=== PATIENT | female | born 1950 | race Caucasian/White ===

== ENCOUNTER 2016-08-27 17:27 | Emergency (ER) | payer OTHER, MEDICARE ==
[~2016-08-27] VITALS: Ht 165.1 cm; Wt 104.3 kg
[~2016-08-27 17:27] MED LIST: CLX20 PO; LEVO150T48 PO; OXYC1TAB3 PO
[2016-08-27 18:02] VITALS: TEMP 37.1; Ht 165.1 cm; Wt 104.3 kg
[2016-08-27] MEDS ORDERED: SULFAMETHOXAZOLE/TRIMETHOPRIM DS 800/160MG TAB PO STA (19:25)
[2016-08-27] MEDS ORDERED: SULF800T23 PO (19:28)
[2016-08-27] MEDS ORDERED: DOXY100C76 PO (19:32)
[2016-08-27] MEDS ORDERED: SPIR50TA2 PO (19:32)
[2016-08-27] MEDS ORDERED: LEVO150T PO (19:32)
[2016-08-27] MEDS ORDERED: ACET-1256 PO (19:32)
[2016-08-27] MEDS ORDERED: LEVO175T PO (19:37)
[2016-08-27 19:45] VITALS: BP 154/93; PULSE 96; O2SAT 98
[2016-08-27] MEDS ORDERED: HYOS1TAB PO (23:13)
--- NOTE | 2016-08-28 00:56 | EMERGENCY ROOM VISIT NOTE ---
History Report prepared by John: Clay Sahu Under the Supervision of: Dr. Billy Pino M.D. First contact with patient: 19:13 Chief Complaint: WOUND INFECTION Stated Complaint: INFECTED CYST ON LF BREAST,SENT BY DR Churchill Triage Summary: "I think I have an infected cyst on my left breast. my doctor told me he thinks I should have antibiotics" History of Present Illness The patient is a 66 year old female who presents to the Emergency Room with complaints of worsening tenderness associated with a cyst on her left breast for the past week. The patient has had the cyst for two months, which is approximately quarter-sized. The cyst started to become red and tender this past week. She denies any fevers, sore throats, or vomiting. The patient's cat stepped on the area last night, which exacerbated the pain. The cat did not scratch the afflicted area. The patient's PCP is aware of the cyst. She had a mammogram in May which demonstrated a cyst on the left breast in the same area. She is currently on Doxycycline for rosacea. The patient is otherwise healthy and denies any history of diabetes. Source of History: patient Onset: one week ago Position: other (left breast) Quality: other (tenderness) Timing: worsening Associated Symptoms: No fevers, No sorethroat, No vomiting Review of Systems See HPI for pertinent positives & negatives. A total of 10 systems reviewed and were otherwise negative. Past Medical & Surgical Medical Problems: (1) Cyst of left breast (2) No known health problems Family History No pertinent family history Social History Smoking Status: Never Smoker Current/Historical Medications Scheduled Doxycycline Monohydrate (Monodox), 100 MG PO DAILY Hyoscyamine Sulfate (Levsin), 0.125 MG PO PRN Levothyroxine Sodium (Synthroid), 175 MCG PO DAILY Spironolactone (Aldactone), 50 MG PO DAILY Sulfa/Trimethoprim (Bactrim Ds 800MG/160MG), 1 TAB PO BID Scheduled PRN Acetaminophen (Tylenol), 1,000 MG PO TID PRN for Pain Allergies Coded Allergies: Miconazole (Verified Allergy, Unknown, 08/13/09) Uncoded Allergies: MONASTAT (Allergy, Unknown, 12/09/02) Physical Exam Vital Signs Date Time Temp Pulse Resp B/P Pulse Ox O2 Delivery O2 Flow Rate FiO2 08/27/16 19:45 96 20 154/93 98 08/27/16 18:02 37.1 99 18 120/82 99 Physical Exam Constitutional: Vital signs reviewed. Eyes: Pupils are equal round reactive to light. Conjunctiva are noninjected. ENT: Pharynx is clear without erythema or exudate. Mucous membranes are moist. Neck supple without meningeal signs. Respiratory: Clear to auscultation bilaterally. Breath sounds are equal bilaterally. Cardiovascular: Regular rate and rhythm. No rubs or gallops. GI: Soft, nondistended and nontender. Bowel sounds are present. Musculoskeletal: No peripheral edema. Integumentary: There is a quarter sized erythematous lesion to the medial superior left breast with an underlying cystic lesion, no induration, no nipple discharge, no left axillary lymphadenopathy. Neurological: The patient is awake and alert. No focal deficits. Psychiatric: Normal affect. Medical Decision & Procedures Medications Administered Medications (Trade) Dose Ordered Sig/Shun Route Start Time Stop Time Status Last Admin Dose Admin Trimethoprim/ Sulfamethoxazole (Septra Ds 800/ 160MG Tab) 1 tab NOW STAT PO 08/27/16 19:25 08/27/16 19:26 DC 08/27/16 19:44 1 TAB ED Course 1915: The patient was evaluated in room D2a. A complete history and physical exam was performed. 1924: Septra Ds 800/160 mg tab PO. 1929: I discussed derian's findings with her. She verbalized agreement of the treatment plan. She was discharged home. Medical Decision This is a 66-year-old female who presents with breast pain. Differential diagnosis includes cyst, cellulitis, mastitis, carcinoma, abscess. I did perform a limited focused review of portions of the patient's old chart on the electronic medical record. The patient has had no recent pertinent visits to this hospital. I did evaluate the patient as noted above. Patient is presenting with redness and tenderness to her left breast where she has a known cyst. She has had this is for months and it was seen on her mammogram previously. She does appear to have developed an infection surrounding it. I did not feel I&D was indicated as it is an infected cyst and would I clearly reaccumulate fluid. I did recommend antibiotic treatment and follow up with her doctor for further evaluation. The patient is currently on doxycycline 100 mg daily for her rosacea. She was told to increase this to 100 mg twice a day for 10 days and she was also given a prescription for Bactrim for 10 days. She was discharged in good condition. Impression Primary Impression: Infection of left breast Scribe Attestation The scribe's documentation has been prepared under my direct and personally reviewed by me in its entirety. I confirm that the note above accurately reflects all work, treatment, procedures, and medical decision making performed by me. Departure Information Dispostion Home / Self-Care Prescriptions Sulfa/Trimethoprim (Bactrim Ds 800MG/160MG) Tab 1 TAB PO BID, #19 TAB Prov: Billy Pino M.D. 08/27/16 Referrals No Doctor, Assigned (PCP) Forms HOME CARE DOCUMENTATION FORM, IMPORTANT VISIT INFORMATION, WORK / SCHOOL INSTRUCTIONS Patient Instructions My [facility] Additional Instructions You have been examined and treated today on an emergency basis only. This is not a substitute for, or an effort to provide, complete comprehensive medical care. It is impossible to recognize and treat all injuries or illnesses in a single emergency department visit. It is therefore important that you follow up closely with your physician for further evaluation and possible outpatient ultrasound. Call as soon as possible for an appointment. Return for worsening symptoms or if you develop fever, vomiting, or any other concerning symptoms.
[2017-02-14] MEDS ORDERED: SPIR50TA2 PO (13:57)
[2017-02-14] MEDS ORDERED: LEVO150T9 PO (13:57)
== END 2016-08-27 19:47 | disposition home or self-care (01) ==
LOC: C.EDB 17:29 → C.EDD 19:47
DX: N61.0 Mastitis without abscess (principal); N60.02 Solitary cyst of left breast; Z79.899 Other long term (current) drug therapy; Z88.8 Allergy status to other drugs, medicaments and biological substances

== ENCOUNTER → 2017-03-14 | Day surgery (SDC) | payer OTHER, MEDICARE ==
[2017-02-14 13:57] VITALS: Ht 165.1 cm; Wt 102.3 kg
[~2017-03-14] VITALS: Ht 165.1 cm; Wt 102.3 kg
[~2017-03-14] MED LIST changes: +500ML BSS 0.3ML EPI 1:1000PF IRRIG ONE; +ACET-1256 PO; +ACETAMINOPHEN 325 MG TAB PO PRN; +AMVISC PLUS 0.8ML SYRINGE INT OCU ONE; +ATROPINE SULFATE 0.1 MG/ML 5ML SYR IV PRN; +AcetaZOLAMIDE 250 MG TAB PO SCH; +BETAXOLOL HCL 0.25% OP SUSP PER DROP CHARGE OPR SCH; +BRIMONIDINE TART 0.2% OP SOLN PER DROP CHARGE ONE; +BSS FLUSH ONE; -CLX20 PO; +DOXY100C76 PO; +ENDOCOAT 0.85ML SYRINGE INT OCU ONE; +EpHEDrine SULFATE INJ 50 MG/ML AMP IV PRN; +EpINEphrine INJ 1MG/ML AMP 1 MG/ML AMP ONE; +LACTATED RINGER'S 1000ML 500 ML IV SCH; -LEVO150T48 PO; +LEVO150T9 PO; +LIDOCAINE 4% OP SOLN DROP CHARGE ONE; +LIDOCAINE 4% OP SOLN DROP CHARGE OPR SCH; +LIDOCAINE HCL 1% MPF 2 ML VIAL ONE; +MIDAZOLAM HCL 1 MG/ML 2ML VIAL ONE; +MIX: 4ML BSS 1ML EPI 1:1000 PF INSTIL ONE; +MOXIFLOXACIN OPH SOLN PER DROP CHARGE ONE; +OCUCOAT 1 ML SOLN IO ONE; -OXYC1TAB3 PO; +POVIDONE-IODINE OP SOLN 30 ML BTL ONE; +PROPARACAINE 0.5% OP SOLN PER DROP CHARGE OPR SCH; +SPIR50TA2 PO; +TOBRAMYCIN/DEXAMETHASONE OPH OINT PER APPLN CHARGE ONE
--- NOTE | 2017-03-14 06:52 | History & Physical Bridge - SC ---
H&P Re-Evaluation Bridge Note: I have examined the patient, reviewed the History & Physical and in the interval since the performance of the History & Physical I have noted the following changes of clinical significance: No changes noted
[2017-03-14] MEDS: PHENYLEPHRINE HCL 2.5% OP SOLN PER DROP CHARGE OPR SCH ×2 (06:58→07:04)
[2017-03-14] MEDS: TROPICAMIDE 1% OP SOLN PER DROP CHARGE OPR SCH ×2 (06:59→07:04)
[2017-03-14] MEDS: CYCLOPENTOLATE HCL 1% OP SOLN PER DROP CHARGE OPR SCH ×2 (07:00→07:05)
[2017-03-14] MEDS: MOXIFLOXACIN OPH SOLN PER DROP CHARGE OPR SCH ×2 (07:00→07:11)
--- NOTE | 2017-03-14 07:54 | Discharge Instructions-SurgCtr ---
Discharge Instructions Date of Service Mar 14, 2017. Visit Reason for Visit: Cataract Right Eye Discharge Discharge Diagnosis / Problem: lens implant right eye Discharge Goals Goal(s): Improve function Activity Recommendations Activity Limitations: resume your previous activity Lifting Limitations: no more than 10 pounds Exercise/Sports Limitations: gradually increase as tolerated May Resume Sexual Activity: when tolerated Shower/Bathe: tomorrow Driving or Machine Use: resume 1 day after discharge Anesthesia . Post Anesthesia Instructions: If you have had General Anesthesia or IV Sedation: * Do not drive today. * Resume driving when surgeon permits. * Do not make important decisions or sign legal documents today. * Call surgeon for: 1. Temperature elevations greater than 101 degrees F. 2. Uncontrollable pain. 3. Excessive bleeding. 4. Persistent nausea and vomiting. 5. Medication intolerance (nausea, vomiting or rash). * For nausea and vomiting use only clear liquids such as: tea, soda, bouillon until nausea subsides, then gradually increase diet as tolerated. * If you have any concerns or questions, call your surgeon's office. If physician is unavailable and it is an emergency, call 911 or go to the nearest emergency room. . Instructions / Follow-Up Instructions / Follow-Up ACTIVITY RECOMMENDATIONS: * Light activities. * Mild irritation and blurred vision are common for the first few days. * You may walk outside, read, watch television. * Redness around the white part of the eye is common. MEDICATIONS: Resume previous medications unless instructed otherwise by your surgeon. * Take white Diamox (Acetazolamide) tablet at 1 pm today. Start all eye drops at 1 pm today: * Eye drops (today and tomorrow): Prednisone - one drop in operative eye every 3 hours while awake Ofloxacin - one drop in operative eye every 3 hours while awake SPECIAL CARE INSTRUCTIONS: * Tape plastic shield over eye to sleep at night. Call your doctor at with any concerns or problems. FOLLOW UP VISIT: Follow-up with Dr Shannon at [place] office as scheduled. Diet Recommendations Home Diet: no limitations Procedures Procedures Performed: cataract extraction with lens implant Pending Studies Studies pending at discharge: no Medical Emergencies . Who to Call and When: Medical Emergencies: If at any time you feel your situation is an emergency, please call 911 immediately. . Non-Emergent Contact Non-Emergency issues call your: Inspector Filters Call Non-Emergent contact if: your pain is not controlled [phone] . . "Provider Documentation" section prepared by Clark Shannon. .
--- NOTE | 2017-03-14 07:56 | [facility] Operative Report ---
Operative Report Date of Service Mar 14, 2017. Operative Report 1. PREOPERATIVE DIAGNOSIS: Senile nuclear cataract, right eye. 2. POSTOPERATIVE DIAGNOSIS: Senile nuclear cataract, right eye. 3. PROCEDURE: Phacoemulsification of right cataract with posterior chamber lens implant, type [employer]ch [employer] Lomb, model MI60L, power +12.0 diopters. ANESTHESIA: Local standby. SURGEON: Dr. Shannon. COMPLICATIONS: None. OPERATING TIME: 10 minutes. 4. OPERATION AND FINDINGS: DESCRIPTION OF PROCEDURE: The right pupil was dilated. The anesthetic was administered using a topical technique. The right eye was prepped and draped. A speculum was placed. A clear corneal incision was formed. The chamber was filled with Amvisc Plus and Endocoat. Epinephrine solution was used. A paracentesis was placed. A capsulorrhexis was performed. The nucleus was hydrodissected. The lens was removed with phacoemulsification. Time was 3.47 seconds. The aspiration unit was used to remove the cortex. The capsule was filled with Amvisc Plus. The lens implant was folded and placed into the capsule. The incision was hydrated. The Amvisc was aspirated. The wound was secure. The chamber was deep. The pupil was round. Brimonidine, TobraDex ointment and Vigamox solution were placed. The speculum was removed. The patient was returned to the Recovery Room in stable condition. I attest to the content of the Intraoperative Record and any orders documented therein. Any exceptions are noted below. The scribe's documentation has been prepared in my presence, under my direction and personally reviewed by me in its entirety. I confirm that the note above accurately reflects all work, treatment, procedures, and medical decision making performed by me. I personally scribed for Clark Shannon M.D. ([email or web address]) on 03/14/17 at 07:56. Electronically submitted by Kylie Umana ([email or web address]).
[2017-03-14 07:58] VITALS: TEMP 37
--- NOTE | 2017-03-14 08:09 | Anesthesia Progress Nt - [facility] ---
Anesthesia Post Op Note Date & Time Mar 14, 2017 at 08:09 Vital Signs Pain Intensity: 0 Vital Signs Past 12 Hours Date Time Temp Pulse Resp B/P (MAP) Pulse Ox O2 Delivery O2 Flow Rate FiO2 03/14/17 06:44 37.0 87 20 128/80 (96) 97 Room Air Notes Mental Status: alert / awake / arousable, participated in evaluation Pt Amnestic to Procedure: Yes Nausea / Vomiting: adequately controlled Pain: adequately controlled Airway Patency, RR, SpO2: stable & adequate BP & HR: stable & adequate Hydration State: stable & adequate Anesthetic Complications: no major complications apparent
[2017-03-14 08:23] VITALS: BP 111/71; PULSE 88; O2SAT 95
== END | disposition home or self-care (01) ==
LOC: X.SURG 06:35
PROVIDERS: ATTEND Specialist
DX: H25.11 Age-related nuclear cataract, right eye (principal)

== ENCOUNTER → 2017-04-18 | Day surgery (SDC) | payer OTHER, MEDICARE ==
[2017-04-11 07:51] VITALS: Ht 165.1 cm; Wt 102.3 kg
[~2017-04-18] VITALS: Ht 165.1 cm; Wt 102.3 kg
[~2017-04-18] MED LIST changes: -AcetaZOLAMIDE 250 MG TAB PO SCH; +BETAXOLOL HCL 0.25% OP SUSP PER DROP CHARGE OPL SCH; -BETAXOLOL HCL 0.25% OP SUSP PER DROP CHARGE OPR SCH; +LIDOCAINE 4% OP SOLN DROP CHARGE OPL SCH; -LIDOCAINE 4% OP SOLN DROP CHARGE OPR SCH; +ONDANSETRON INJ 2 MG/ML 2 ML VIAL IV PRN; +PROPARACAINE 0.5% OP SOLN PER DROP CHARGE OPL SCH; -PROPARACAINE 0.5% OP SOLN PER DROP CHARGE OPR SCH
[2017-04-18] MEDS: PHENYLEPHRINE HCL 2.5% OP SOLN PER DROP CHARGE OPL SCH ×2 (08:34→08:39)
[2017-04-18] MEDS: TROPICAMIDE 1% OP SOLN PER DROP CHARGE OPL SCH ×2 (08:35→08:40)
[2017-04-18] MEDS: CYCLOPENTOLATE HCL 1% OP SOLN PER DROP CHARGE OPL SCH ×2 (08:36→08:41)
[2017-04-18] MEDS: MOXIFLOXACIN OPH SOLN PER DROP CHARGE OPL SCH ×2 (08:37→08:47)
--- NOTE | 2017-04-18 09:35 | Discharge Instructions-SurgCtr ---
Discharge Instructions Date of Service Apr 18, 2017. Visit Reason for Visit: Cataract Left Eye Discharge Discharge Diagnosis / Problem: lens implant left eye Discharge Goals Goal(s): Improve function Activity Recommendations Activity Limitations: resume your previous activity Lifting Limitations: no more than 10 pounds Exercise/Sports Limitations: gradually increase as tolerated May Resume Sexual Activity: when tolerated Shower/Bathe: tomorrow Driving or Machine Use: resume 1 day after discharge Anesthesia . Post Anesthesia Instructions: If you have had General Anesthesia or IV Sedation: * Do not drive today. * Resume driving when surgeon permits. * Do not make important decisions or sign legal documents today. * Call surgeon for: 1. Temperature elevations greater than 101 degrees F. 2. Uncontrollable pain. 3. Excessive bleeding. 4. Persistent nausea and vomiting. 5. Medication intolerance (nausea, vomiting or rash). * For nausea and vomiting use only clear liquids such as: tea, soda, bouillon until nausea subsides, then gradually increase diet as tolerated. * If you have any concerns or questions, call your surgeon's office. If physician is unavailable and it is an emergency, call 911 or go to the nearest emergency room. . Instructions / Follow-Up Instructions / Follow-Up ACTIVITY RECOMMENDATIONS: * Light activities. * Mild irritation and blurred vision are common for the first few days. * You may walk outside, read, watch television. * Redness around the white part of the eye is common. MEDICATIONS: Resume previous medications unless instructed otherwise by your surgeon. Start all eye drops at 1 pm today: * Eye drops (today and tomorrow): Prednisone - one drop in operative eye every 3 hours while awake Ofloxacin - one drop in operative eye every 3 hours while awake SPECIAL CARE INSTRUCTIONS: * Tape plastic shield over eye to sleep at night. Call your doctor at with any concerns or problems. FOLLOW UP VISIT: Follow-up with Dr Shannon at [place] office as scheduled. Diet Recommendations Home Diet: no limitations Procedures Procedures Performed: cataract extraction with lens implant Pending Studies Studies pending at discharge: no Medical Emergencies . Who to Call and When: Medical Emergencies: If at any time you feel your situation is an emergency, please call 911 immediately. . Non-Emergent Contact Non-Emergency issues call your: Sub Arc Operator Call Non-Emergent contact if: your pain is not controlled [phone] . . "Provider Documentation" section prepared by Clark Shannon. .
--- NOTE | 2017-04-18 09:38 | [facility] Operative Report ---
Operative Report Date of Service Apr 18, 2017. Operative Report 1. PREOPERATIVE DIAGNOSIS: Senile nuclear cataract, left eye. 2. POSTOPERATIVE DIAGNOSIS: Senile nuclear cataract, left eye. 3. PROCEDURE: Phacoemulsification of left cataract with posterior chamber lens implant, type Bausch [employer] Lomb, model MI60L, power +12.5 diopters. ANESTHESIA: Local standby. SURGEON: Dr. Shannon. COMPLICATIONS: None. OPERATING TIME: 10 minutes. 4. OPERATION AND FINDINGS: DESCRIPTION OF PROCEDURE: The left pupil was dilated. The anesthetic was administered using a topical technique. The left eye was prepped and draped. A speculum was placed. A clear corneal incision was formed. The chamber was filled with Amvisc Plus and Endocoat. Epinephrine solution was used. A paracentesis was placed. A capsulorrhexis was performed. The nucleus was hydrodissected. The lens was removed with phacoemulsification. Time was 4.34 seconds. The aspiration unit was used to remove the cortex. The capsule was filled with Amvisc Plus. The lens implant was folded and placed into the capsule. The incision was hydrated. The Amvisc was aspirated. The wound was secure. The chamber was deep. The pupil was round. Brimonidine, TobraDex ointment and Vigamox solution were placed. The speculum was removed. The patient was returned to the Recovery Room in stable condition. I attest to the content of the Intraoperative Record and any orders documented therein. Any exceptions are noted below. The scribe's documentation has been prepared in my presence, under my direction and personally reviewed by me in its entirety. I confirm that the note above accurately reflects all work, treatment, procedures, and medical decision making performed by me. I personally scribed for Clark Shannon M.D. ([email or web address]) on 04/18/17 at 09:38. Electronically submitted by Kylie Umana ([email or web address]).
--- NOTE | 2017-04-18 09:56 | Anesthesiology Progress Note ---
Anesthesia Post Op Note Date & Time Apr 18, 2017 at 09:56 Vital Signs Pain Intensity: 0 Vital Signs Past 12 Hours Date Time Temp Pulse Resp B/P (MAP) Pulse Ox O2 Delivery O2 Flow Rate FiO2 04/18/17 09:41 36.8 89 18 124/81 (95) 96 Room Air 04/18/17 08:29 37.1 88 16 128/78 (95) 96 Room Air Notes Mental Status: alert / awake / arousable, participated in evaluation Nausea / Vomiting: adequately controlled Pain: adequately controlled Airway Patency, RR, SpO2: stable & adequate BP & HR: stable & adequate Hydration State: stable & adequate Anesthetic Complications: no major complications apparent
[2017-04-18 10:02] VITALS: BP 128/69; PULSE 89; O2SAT 97
== END | disposition home or self-care (01) ==
LOC: X.SURG 07:50
PROVIDERS: ATTEND Specialist
DX: H25.12 Age-related nuclear cataract, left eye (principal); G47.33 Obstructive sleep apnea (adult) (pediatric); E66.9 Obesity, unspecified; Z90.49 Acquired absence of other specified parts of digestive tract; Z98.890 Other specified postprocedural states